=== PATIENT | female | born 1950 | race Caucasian/White ===

== ENCOUNTER → 2024-02-20 11:38 | Outpatient (REF) | payer OTHER, SELFPAY | LOC: MRI 3T 11:38 | PROVIDERS: ATTENDING PHYSICIAN Specialist; FAMILY PHYSICIAN Physician Assistant Medical | DX: M25.511 Pain in right shoulder (principal); M19.019 Primary osteoarthritis, unspecified shoulder; M19.011 Primary osteoarthritis, right shoulder; M75.41 Impingement syndrome of right shoulder | CPT/HCPCS: 73221 ==

== ENCOUNTER → 2024-02-22 14:03 | Outpatient (REF) | payer OTHER, SELFPAY | LOC: HWWDC 14:03 | PROVIDERS: ATTENDING PHYSICIAN Physician Assistant Medical | DX: Z12.31 Encounter for screening mammogram for malignant neoplasm of breast (principal) | CPT/HCPCS: 77063; 77067 ==

== ENCOUNTER → 2024-04-01 09:19 | Outpatient (REF) | payer OTHER, SELFPAY ==
[2024-04-01 12:45] LABS: Blood Urea Nitrogen 22 mg/dl (7-17); Calcium 9.3 mg/dl (8.4-10.2); Carbon Dioxide 28 mmol/L (22-30); Chloride 105 mmol/L (98-107); Glucose 65 mg/dl (70-99); Potassium 4.4 mmol/L (3.5-5.1); Sodium 141 mmol/L (135-145); eGFR 59.49
== END ==
LOC: RCS 09:19
PROVIDERS: ATTENDING PHYSICIAN Specialist; FAMILY PHYSICIAN Physician Assistant Medical
DX: Z01.818 Encounter for other preprocedural examination (principal)
CPT/HCPCS: 36415; 80048; 93005

== ENCOUNTER → 2024-09-30 09:48 | Outpatient (REF) | payer OTHER, SELFPAY | LOC: HWRAD 09:48 | PROVIDERS: ATTENDING PHYSICIAN Physician Assistant; FAMILY PHYSICIAN Physician Assistant Medical | DX: K82.4 Cholesterolosis of gallbladder (principal) | CPT/HCPCS: 76700 ==

== ENCOUNTER → 2024-10-08 13:45 | Outpatient (REF) | payer OTHER, SELFPAY | LOC: WDC 13:45 | PROVIDERS: ATTENDING PHYSICIAN Physician Assistant Medical | DX: R92.2 Inconclusive mammogram (principal) | CPT/HCPCS: 76641 ==

== ENCOUNTER 2024-11-25 22:06 | Emergency (ER) | payer OTHER, SELFPAY ==
[2024-11-25 22:27] VITALS: BP 137/82
--- NOTE | 2024-11-26 00:26 | ED.GENMED ---
History of Present Illness
General
Chief Complaint: Musculo-Skeletal Complaint
Time Seen by Provider: 11/26/24 00:26
History of Present Illness
History of Present Illness:
TIME OF INITIAL ENCOUNTER: 12:30 AM
HPI: The patient presents with nontraumatic neck pain over the last 4 days. She describes it as a throbbing sensation in the back of the neck. She has greatly limited active range of motion into rotation at the cervical spine due to pain.
Movement of the upper extremities also causes increased pain at the neck. She has no loss of motor function or any other neurologic deficit.
EXAM:
GENERAL: The patient appears uncomfortable
HEENT: Moist oral mucosa
NECK: There is marked tenderness to palpation to the right greater than left paraspinal musculature, there is markedly decreased active range of motion of the rotation, no significant midline C-spine tenderness
NEUROLOGIC: Very good strength all extremities, no coordination deficits
PSYCHIATRIC: Appropriate mental status, normal insight and judgement
EXTREMITIES: Nontender, no edema, moves all extremities equally
SKIN: No rash, no lesions
NUMBER AND COMPLEXITY OF PROBLEMS ADDRESSED AT THE ENCOUNTER
� Chronic conditions affecting care: Hyperlipidemia, frequent UTIs
� Acute Exacerbation and/or Progression of Chronic Illness: This is an acute problem
� Differential Diagnosis includes: Cervical strain, cervicals musculature spasm, the patient has no neurologic deficits therefore doubt dissection or vascular etiology
AMOUNT AND/OR COMPLEXITY OF DATA TO BE REVIEWED AND ANALYZED
� I performed an independent evaluation of and my interpretation is:
EKG: Sinus 70, leftward axis, no acute ST abnormality
CT:
X-rays:
Laboratory Studies:
Other:
� Review of other/old records: I reviewed records, the patient was seen here in 2020 related to a hamstring injury
� Clinical information was obtained by an independent historian: None needed
� Prescriptions/Medications Considered but not given: Considered a dose of narcotic analgesia over the patient drove herself here
� Further testing considered but not performed: No clear indication for imaging at this time as symptoms appear to be related to a muscular etiology
RISK OF COMPLICATIONS AND/OR MORBIDITY OR MORTALITY OF PATIENT MANAGEMENT
� Social determinants of health affecting care: Lives at home, drove herself here
� Discussion with other providers:
� Escalation of care including admission/observation vs risk of discharge considered: I gave the patient a 1 mL one-to-one mixture of lidocaine and Marcaine just under the surface of the skin near the right paraspinal
musculature. I sent a prescription for Flexeril to her pharmacy. She is to continue NSAIDs.
ANY OTHER UPDATES:
Past History
Past History
ED Past Medical History: Hypercholesterolemia and Other (Diverticulitis, Gallstones)
ED Past Surgical History: None
Social History
Tobacco: Non-smoker
Alcohol: Occasional
Drug: None
Personal:
Living: with family
Phy Exam
Physical Exam
Physical Exam:
See HPI
Course
Orders/Labs/Results
Orders:
Orders
11/25/24 22:30
Electrocardiogram (*1) Urgent
Reason for Study: Other
Other Reason for Exam: neck pain
EKG- Treatment ONCE
11/26/24 00:48
Acetaminophen [Tylenol] 1,000 mg PO NOW STA
Ketorolac [Toradol] 30 mg IM NOW STA
Vital Signs
Initial and Last Documented VS:
Initial Vital Signs
Temp Pulse Resp BP Pulse Ox
36.8 C 78 18 137/82 98
11/25/24 22:27 11/25/24 22:27 11/25/24 22:27 11/25/24 22:27 11/25/24 22:27
Last Documented Vital Signs
Temp Pulse Resp BP Pulse Ox
36.8 C 78 18 137/82 98
11/25/24 22:27 11/25/24 22:27 11/25/24 22:27 11/25/24 22:27 11/25/24 22:27
*Critical Care Note
Total Time (30-74mins, 75-104mins- exclusive of procedures): Not Applicable
ED Attending Note
-
Portions of this chart may have been created with voice recognition software.� Occasional wrong word or��sound alike� substitutions may have occurred due to the inherent limitations of voice recognition software.
Discharge Plan
Departure
Patient Disposition: Home (Routine Discharge)
Date of Disposition: 11/26/24
Time of Disposition: 00:48
Patient with high blood pressure during this ER visit?: Yes
Discharge Problem:
Cervical paraspinal muscle spasm
Instructions: Neck pain, Active Range of Motion Exercises, Neck and Shoulders
Prescriptions:
New
cyclobenzaprine 5 mg tablet
5 - 10 mg PO TID PRN (Reason: muscle spasm) Qty: 16 0RF
No Action
Probiotic
1 tab PO DAILY
Zocor:
10 mg PO QPM
Activity Restrictions/Additional Instructions:
I used a small amount of lidocaine and Marcaine to try to anesthetize a small area just underneath the skin on the right side of the neck. This was not deep. EKG is normal. I suspect that your symptoms are related to a muscular etiology such as
spasm. I am sending a prescription for Flexeril to your pharmacy.
Interventions
Interventions:
*Risk Screen - Suicide Last Done: 11/26/24 00:13
*General Assessment Last Done: 11/26/24 00:13
*Neglect/Abuse Screening Last Done: 11/26/24 00:13
*ED COVID-19 Vaccine History Last Done: 11/26/24 00:13
ED-Musculoskeletal Assessment Last Done: 11/26/24 00:13
Discharge Date and Time
Print Language: IRAQI
[2024-11-26] MEDS: TYLENOL 1000 MG PO (01:08)
[2024-11-26] MEDS: TORADOL 30 MG IM (01:08)
== END 2024-11-26 01:22 | disposition home or self-care (01) ==
LOC: EMR 22:06
PROVIDERS: EMERGENCY PHYSICIAN Emergency Medicine; FAMILY PHYSICIAN Physician Assistant Medical
DX: M62.838 Other muscle spasm (principal); R03.0 Elevated blood-pressure reading, without diagnosis of hypertension; E78.00 Pure hypercholesterolemia, unspecified
CPT/HCPCS: 99284; 96372; 93005

== ENCOUNTER 2025-01-10 06:17 | Day surgery (SDC) | payer OTHER, SELFPAY | END 2025-01-10 12:34 | disposition home or self-care (01) | LOC: GI 06:17 | PROVIDERS: ATTENDING PHYSICIAN Specialist; FAMILY PHYSICIAN Physician Assistant Medical | DX: K22.70 Barrett's esophagus without dysplasia (principal); K22.89 Other specified disease of esophagus; K31.7 Polyp of stomach and duodenum | CPT/HCPCS: 43239; 88305 ==

== ENCOUNTER → 2025-09-15 14:20 | Outpatient (REF) | payer OTHER, SELFPAY | LOC: HWWDC 14:20 | PROVIDERS: ATTENDING PHYSICIAN Nurse Practitioner Adult Health | DX: Z12.31 Encounter for screening mammogram for malignant neoplasm of breast (principal) | CPT/HCPCS: 77063; 77067 ==